=== PATIENT | female | born 1975 | race Caucasian/White ===

== ENCOUNTER 2020-04-19 07:57 | Outpatient (CLI) | payer BC, SELFPAY | END 2020-04-19 07:58 | disposition home or self-care (01) | LOC: ANHAUDIO 07:59 | PROVIDERS: PCP Family Medicine; Visit Provider Otolaryngology | DX: R42 Dizziness and giddiness (principal) | CPT/HCPCS: 92537; 92540; 92546; 92557; 92567 ==

== ENCOUNTER 2020-07-26 14:12 | Outpatient (CLI) | payer BC, SELFPAY ==
--- NOTE | ~2020-07-26 | MM_ITS ---
EXAMINATION: MM screening manny BI w leo HISTORY: Screening mammogram TECHNIQUE: Craniocaudal and mediolateral oblique 3-D tomosynthesis images were obtained and synthetic 2-D images were generated. CAD analysis was submitted and interpreted. COMPARISON: 05/19/2019, 05/17/2018, 05/14/2017 bilateral digital screening mammogram examinations BREAST PARENCHYMAL COMPOSITION: There are scattered areas of fibroglandular density. FINDINGS: Stable circumscribed approximately 5 mm opacity in the lower outer quadrant of the right br east at mid depth, most consistent with stable benign intramammary lymph node. There is no evidence o f suspicious mass, calcification, or architectural distortion to suggest malignancy in either breast. There has been no suspicious interval change. IMPRESSION: 1. No mammographic evidence of malignancy. 2. Recommend routine screening mammography in one year. BI-RADS Category 2: Benign finding(s). Reviewed, dictated and finalized at location A.
== END 2020-07-26 14:13 | disposition home or self-care (01) ==
LOC: ANHIMG 14:14
PROVIDERS: PCP Family Medicine; Visit Provider Obstetrics & Gynecology Gynecology
DX: Z12.31 Encounter for screening mammogram for malignant neoplasm of breast (principal)
CPT/HCPCS: 77063; 77067

== ENCOUNTER 2021-07-28 08:48 | Outpatient (CLI) | payer BC, SELFPAY ==
--- NOTE | ~2021-07-28 | MM_ITS ---
EXAMINATION: MM screening manny BI w leo HISTORY: Screening TECHNIQUE: Craniocaudal and mediolateral oblique 3-D tomosynthesis images were obtained and synthetic 2-D images were generated. CAD analysis was submitted and interpreted. COMPARISON: Comparison to multiple prior studies sequentially, with oldest reviewed study dated 01/21. BREAST PARENCHYMAL COMPOSITION: There are scattered areas of fibroglandular density. FINDINGS: There are punctate calcifications in the upper aspect of the left breast on MLO view, not v isualized on cc view. The right breast is stable without evidence for malignancy. IMPRESSION: 1. Subtle punctate calcifications upper aspect of the left breast on MLO view. 2. Magnification views are recommended. BI-RADS Category 0: Incomplete: Needs additional imaging evaluation. Reviewed, dictated and finalized at location A.
== END 2021-07-28 08:49 | disposition home or self-care (01) ==
LOC: ANHIMG 08:49
PROVIDERS: PCP Family Medicine; Visit Provider Obstetrics & Gynecology Gynecology
DX: Z12.31 Encounter for screening mammogram for malignant neoplasm of breast (principal); R92.8 Other abnormal and inconclusive findings on diagnostic imaging of breast
CPT/HCPCS: 77063; 77067

== ENCOUNTER 2021-08-05 13:45 | Outpatient (CLI) | payer BC, SELFPAY ==
--- NOTE | ~2021-08-05 | MM_ITS ---
EXAMINATION: MM diagnostic manny LT w leo HISTORY: Follow-up left breast calcifications TECHNIQUE: Additional 3-D tomosynthesis images of the left breast were performed and synthetic 2-D im ages were generated. CAD analysis was submitted and interpreted. COMPARISON: Comparison to multiple prior studies sequentially, with oldest reviewed study dated 03/23. BREAST PARENCHYMAL COMPOSITION: Breast composed of scattered areas of fibroglandular density FINDINGS: There are no suspicious calcifications identified with spot magnification or mediolateral v iews. The calcifications described on prior examination are possibly artifact. No discrete mass or ar chitectural distortion. IMPRESSION: 1. No mammographic evidence for malignancy in the left breast. 2. Routine yearly screening mammogram and regular clinical breast examination are recommended. BI-RADS Category 1: Negative Reviewed, dictated and finalized at location A. IMPRESSION: 1. No mammographic evidence for malignancy in the left breast. 2. Routine yearly screening mammogram and regular clinical breast examination a re recommended. BI-RADS Category 1: Negative
== END 2021-08-05 13:46 | disposition home or self-care (01) ==
LOC: ANHIMG 13:46
PROVIDERS: PCP Family Medicine; Visit Provider Obstetrics & Gynecology Gynecology
DX: R92.8 Other abnormal and inconclusive findings on diagnostic imaging of breast (principal)
CPT/HCPCS: 77061; 77065; G0279

== ENCOUNTER 2022-08-28 09:10 | Outpatient (CLI) | payer BC, SELFPAY ==
--- NOTE | ~2022-08-28 | MM_ITS ---
EXAMINATION: MM screening [facility] BI w leo HISTORY: Screening mammogram TECHNIQUE: Craniocaudal and mediolateral oblique 3-D tomosynthesis images were obtained and synthetic 2-D images were generated. CAD analysis was submitted and interpreted. COMPARISON: 08/05/2021, 07/28/2021, 07/26/2020 BREAST PARENCHYMAL COMPOSITION: There are scattered areas of fibroglandular density. FINDINGS: No suspicious mass, calcification, or architectural distortion are identified in either isra ast to suggest malignancy. There has been no suspicious interval change. IMPRESSION: 1. No mammographic evidence of malignancy. 2. Recommend routine screening mammography in one year. BI-RADS Category 1: Negative Reviewed, dictated and finalized at location A.
== END 2022-08-28 09:11 | disposition home or self-care (01) ==
LOC: ANHIMG 09:12
PROVIDERS: PCP Family Medicine; Visit Provider Obstetrics & Gynecology Gynecology
DX: Z12.31 Encounter for screening mammogram for malignant neoplasm of breast (principal)
CPT/HCPCS: 77063; 77067

== ENCOUNTER 2023-11-09 09:01 | Outpatient (CLI) | payer BC, SELFPAY ==
--- NOTE | ~2023-11-09 | MM_ITS ---
EXAMINATION: MM screening manny BI w leo HISTORY: Screening TECHNIQUE: Craniocaudal and mediolateral oblique 3-D tomosynthesis images were obtained and synthetic 2-D images were generated. CAD analysis was submitted and interpreted. COMPARISON: Comparison to multiple prior studies sequentially, with oldest reviewed study dated 05/17/2018. BREAST PARENCHYMAL COMPOSITION: Not dense: There are scattered areas of fibroglandular density. FINDINGS: There is no evidence of suspicious mass, calcification, or architectural distortion to sugg est malignancy in either breast. There has been no suspicious interval change. IMPRESSION: 1. No mammographic evidence of malignancy. 2. Recommend routine screening mammography in one year. BI-RADS Category 1: Negative Reviewed, dictated and finalized at location B.
== END 2023-11-09 09:02 | disposition home or self-care (01) ==
LOC: ANHIMG 09:02
PROVIDERS: PCP Family Medicine; Visit Provider Obstetrics & Gynecology Gynecology
DX: Z12.31 Encounter for screening mammogram for malignant neoplasm of breast (principal)
CPT/HCPCS: 77063; 77067

== ENCOUNTER 2024-01-11 03:05 | Day surgery (SDC) | payer BC, SELFPAY ==
[2023-12-17 11:58] VITALS: BMI 28.9
[2024-01-11 07:51] VITALS: BP 115/98; PULSE 77; RESP 18; TEMP 36.1; O2SAT 100
[2024-01-11] MEDS: LACTATED RINGERS 1,000 ML 150 ML IV CONT (08:02)
--- NOTE | 2024-01-11 08:06 | WPDANESEPPF ---
Anes - Initial Pre Proc Eval Procedure: Operation Date: 01/11/24 09:00 Proposed Procedures p Colonoscopy - Fred Lewis MD Date/Time: 01/11/24 08:06 Surgeon: Fred Lewis MD Pre Op Diagnosis: Fam. Hx. colon CA Patient Data Age: 48 Gender: F Height: 1.73 m Weight: 88 kg Last Vital Signs Temp 36.1 C L 01/11/24 07:51 Pulse 77 01/11/24 07:51 Resp 18 01/11/24 07:51 BP 115/98 H 01/11/24 07:51 Pulse Ox 100 01/11/24 07:51 O2 Del Method Room Air 01/11/24 07:51 Allergies Allergy/AdvReac Type Severity Reaction Status Date / Time No Known Allergies Allergy Mild Verified 01/11/24 07:44 Home Medications Medication Instructions Recorded Confirmed Type cetirizine 10 mg capsule (Zyrtec) 10 mg PO DAILY PRN allergies 03/06/23 12/17/23 History cholecalciferol (vitamin D3) 50 50 mcg PO DAILY 03/06/23 12/17/23 History mcg (2,000 unit) capsule etonogestrel 0.12 mg-ethinyl 1 vag ring vaginal ONCE 03/06/23 12/17/23 History estradiol 0.015 mg/24 hr vaginal ring (NuvaRing) levothyroxine 112 mcg capsule 112 mcg PO DAILY 03/06/23 12/17/23 History multivitamin 1 tablet PO DAILY 03/06/23 12/17/23 History omega 3-uiq-leb-fish oil 60 mg-90 1 cap PO DAILY 03/06/23 12/17/23 History mg-500 mg capsule (Fish Oil) vitamins A,C,G-cquu-wwejlk 2,148 2 tablet PO BID 03/06/23 12/17/23 History mcg-113 mg-45 mg-17.4 mg tablet (PreserVision AREDS) losartan 50 mg tablet 50 mg PO DAILY #90 tabs 08/28/23 12/17/23 Rx Patient hx anesthesia problems: post op nausea/vomiting Family hx anesthesia problems: none Results Review: All pre-operative results and documents have been reviewed as part of the pre-operative evaluation. [facility] Past Medical History Medical History Benign essential HTN Gerald's thyroiditis Sensitive skin Family History Family History Father Colon cancer Mother Hypertension Social History Social History Social History: Smoking status: Never smoker Second hand tobacco smoke exposure: No Alcohol intake: current Drinks per week: 1 Alcohol use details: Occasionally Substance use: never Substance use type: does not use Do You Feel Safe in your Home?: Yes Lack of Transportation: No Lack of Food: Never True Current Housing: I Have Housing Concerned About Future Housing: No Difficulty Paying Gas/Electric Bills: No Difficulty Paying for Meds: No Currently Unemployed: No Education: Master's Degree or Higher Difficulty w/ Childcare or Family Care: No Living arrangements: with family Occupation/Education: occupation Additional occupation/education comments: 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 Gender identity (if verbalized by the patient): Female Sexual Orientation (if Verbalized by the Patient): Straight or Heterosexual Spiritual care concerns: No Anes - Eval Final PreProcedure Day of Procedure 01/11/24 08:06 Patient weight: overweight Heart: regular rate and rhythm Lungs: clear to auscultation Airway: Mallampati scale class II Neurological: alert and oriented Last oral intake: >/= 8 hours ASA classification: II Emergent: no Anesthetic plan: proceed Anesthesia type and monitoring: general GIVS and standard monitoring Results Review: All pre-operative results and documents have been reviewed as part of the pre-operative evaluation. Informed Consent: The patient's anesthetic plan and its attendant risks and benefits were discussed with the patient/family/POA. Questions were solicited and answers provided to the satisfaction of the patient/family/POA.
[2024-01-11 08:09] LABS: BEDSIDEPREGUCG Negative (Negative)
--- NOTE | 2024-01-11 08:23 | PM.HPGS ---
History of Present Illness History of Present Illness Consent: Risks, benefits, and alternatives have been discussed and questions answered. Patient agrees to proceed with procedure. Chief complaint: Fam. Hx. colon CA Narrative: Aracelis Villanueva is a 48 year old female here for colonoscopy, last one 5 years ago, father had colon cancer at early 50 Review of Systems Review of Systems: All systems reviewed & are unremarkable except as noted in HPI and below PMFSH Past Medical History Medical History Benign essential HTN Gerald's thyroiditis Sensitive skin Family History Family History Father Colon cancer Mother Hypertension Social History Social History Social History: Smoking status: Never smoker Second hand tobacco smoke exposure: No Alcohol intake: current Drinks per week: 1 Alcohol use details: Occasionally Substance use: never Substance use type: does not use Do You Feel Safe in your Home?: Yes Lack of Transportation: No Lack of Food: Never True Current Housing: I Have Housing Concerned About Future Housing: No Difficulty Paying Gas/Electric Bills: No Difficulty Paying for Meds: No Currently Unemployed: No Education: Master's Degree or Higher Difficulty w/ Childcare or Family Care: No Living arrangements: with family Occupation/Education: occupation Additional occupation/education comments: 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 Gender identity (if verbalized by the patient): Female Sexual Orientation (if Verbalized by the Patient): Straight or Heterosexual Spiritual care concerns: No Meds Home Medications and Allergies Home Medications Medication Instructions Recorded Confirmed Type cetirizine 10 mg capsule (Zyrtec) 10 mg PO DAILY PRN allergies 03/06/23 12/17/23 History cholecalciferol (vitamin D3) 50 50 mcg PO DAILY 03/06/23 12/17/23 History mcg (2,000 unit) capsule etonogestrel 0.12 mg-ethinyl 1 vag ring vaginal ONCE 03/06/23 12/17/23 History estradiol 0.015 mg/24 hr vaginal ring (NuvaRing) levothyroxine 112 mcg capsule 112 mcg PO DAILY 03/06/23 12/17/23 History multivitamin 1 tablet PO DAILY 03/06/23 12/17/23 History omega 0-xnj-gqv-fish oil 60 mg-90 1 cap PO DAILY 03/06/23 12/17/23 History mg-500 mg capsule (Fish Oil) vitamins A,C,M-diyo-nqzevd 2,148 2 tablet PO BID 03/06/23 12/17/23 History mcg-113 mg-45 mg-17.4 mg tablet (PreserVision AREDS) losartan 50 mg tablet 50 mg PO DAILY #90 tabs 08/28/23 12/17/23 Rx Allergies Allergy/AdvReac Type Severity Reaction Status Date / Time No Known Allergies Allergy Mild Verified 01/11/24 07:44 Vital Signs Vital Signs - 24 hr 01/11/24 07:51 Temperature 97 F L Pulse Rate 77 Respiratory Rate 18 Blood Pressure 115/98 H Pulse Oximetry 100 Oxygen Delivery Room Air Exam Const: General: comfortable and no acute distress HENMT: Face/Nose/Sinus: Normal nares present Eyes: General: appearance normal, both eyes and all related structures Neck: Neck: no JVD Resp: Auscultation: clear to auscultation bilaterally Cardio: Rate: regular rate Rhythm: regular rhythm GI: Inspection: non-distended GI Palp: Yes Soft to palpation Skin: General skin exam: normal color Neuro: General: gait normal Speech: normal speech Extrem: General: normal to inspection Psych: Mental Status: mental status grossly normal Assessment and Plan Assessment and plan (1) FHx: colon cancer: Code(s): Z80.0 - Family history of malignant neoplasm of digestive organs Status: Acute Assessment and Plan: colonoscopy
[2024-01-11 08:36] VITALS: BP 115/72; PULSE 78; RESP 19; O2SAT 100
[2024-01-11 08:46] VITALS: BP 112/72; PULSE 68; RESP 21; O2SAT 100
[2024-01-11 08:56] VITALS: BP 130/85; PULSE 66; RESP 18; O2SAT 100
== END 2024-01-11 09:02 | disposition home or self-care (01) ==
PROVIDERS: Anesthesiology; PCP Family Medicine; Visit Provider Internal Medicine Gastroenterology
PROC: 0DJD8ZZ Inspection of Lower Intestinal Tract, Via Natural or Artificial Opening Endoscopic (ICD-10-PCS; CPT 45378; principal; 2024-01-11 09:00)
DX: Z12.11 Encounter for screening for malignant neoplasm of colon (principal); Z80.0 Family history of malignant neoplasm of digestive organs; K57.30 Diverticulosis of large intestine without perforation or abscess without bleeding; K64.8 Other hemorrhoids; I10 Essential (primary) hypertension; E06.3 Autoimmune thyroiditis
CPT/HCPCS: 45378; J2704; J7120

== ENCOUNTER 2024-12-04 08:22 | Outpatient (CLI) | payer BC, SELFPAY ==
--- NOTE | ~2024-12-04 | MM_ITS ---
EXAMINATION: MM screening manny BI w leo HISTORY: Screening TECHNIQUE: Craniocaudal and mediolateral oblique 3-D tomosynthesis images were obtained and synthetic 2-D images were generated. CAD analysis was submitted and interpreted. COMPARISON: Comparison to multiple prior studies sequentially, with oldest reviewed study dated 05/19. BREAST PARENCHYMAL COMPOSITION: Not dense: There are scattered areas of fibroglandular density. FINDINGS: Stable benign low-density mass upper outer quadrant of the right breast. There is no eviden ce of suspicious mass, calcification, or architectural distortion to suggest malignancy in either isra ast. There has been no suspicious interval change. IMPRESSION: 1. No mammographic evidence of malignancy. 2. Recommend routine screening mammography in one year. BI-RADS Category 2: Benign finding(s). Reviewed, dictated and finalized at location A.
--- OUTSIDE RECORDS SUMMARY | 2024-12-04 08:29 | XMS_ITS | Encounter Summary ---
Author Organization [facility] Address [address] [place] [address] Care Team Providers Care Supervisor Feed Mill Name Role Phone Zhou Gaxiola DO Primary Care Provider [phone] Yuliya Blanca MD Primary Care Provider [phone] Forrest Willett MD Primary Care Provider [phone] Reason for Visit * Reason Onset Date Comments MEDICATION REFILL 06/17/2018 Encounter Details Date Type Department Care Team (Late Contact Info) Description 06/17/2018 Refill [facility] [address] [place] [address] Jonny Tucker MD [address] [place] [phone] MEDICATION REFILL Social History Tobacco Use Types Packs/Day Years Used Date Smoking Tobacco: Never Smokeless Tobacco: Never Alcohol Use Standard Drinks/Week Comments Yes 0 (1 standard drink = 0.6 oz pur e alcohol) Comments Unknown Sex and Gender Information Value Date Recorded Sex Assigned at Not on file Legal Sex Female 6:34 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 Gender Identity Not on file Sexual Orientation Not on file documented as of this encounter Plan of Treatment Upcoming Encounters Date Type Department Care Team (Late Contact Info) Description 02/24/2025 9:00 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 Office Visit [facility] [address] [place] [phone] Liliam Gaffney MD [address] [address] documented as of this encounter Visit Diagnoses Diagnosis 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 [place] [phone] PCP - General 09/02/18 01/24/23 Forrest Willett MD [address] [place] [address] PCP - General Family Medicine 01/25/23 documented as of this encounter
--- OUTSIDE RECORDS SUMMARY | 2024-12-04 08:29 | XMS_ITS | Clinical Summary ---
Author Organization [facility] Address [address] [place] [address] Phone Care Team Providers Care Chemical Analyst Name Role Phone Unavailable Primary Care Provider Unavailabl e Encounters Date Type Department Care Team Description 11/05/2024 External Device Data [facility] ABSTRACTION Provider, Abstract 11/04/2024 External Device Data [facility] ABSTRACTION Provider, Abstract 10/07/2024 External Device Data [facility] ABSTRACTION Provider, Abstract 09/11/2024 External Device Data [facility] ABSTRACTION Provider, Abstract 09/09/2024 External Device Data [facility] ABSTRACTION Provider, Abstract from Last 3 Months Social History Tobacco Use Types Packs/Day Years Used Date Smoking Tobacco: Never Assessed Comments Unknown Sex and Gender Information Value Date Recorded Sex Assigned at Not on file 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 Gender Identity Not on file Sexual Orientation Not on file Plan of Treatment Health Maintenance Due Date Last Done Comments HEPATITIS B VACCINES (1 of 3 - 19+ 3-dose series) 01/21 HPV/Cotest (21-29) 02/05/1997 HPV/Cotest (30-65) 02/05/2006 BREAST CANCER SCREENING 2016 CERVICAL CANCER SCREENING 04/03/2020 PAP SMEAR 04/03/2020 04/03/2017 COLORECTAL SCREENING 02/05/2021 Colorectal Cancer Screening 02/05/2021 FIT-DNA Q 3 years 02/05/2021 FIT/FOBT Q 1 year 02/05/2021 Flex Sig/CT Colonography Q 5 years 02/05/2021 INFLUENZA VACCINE (#1) 2024 DTAP/TDAP/TD VACCINES (2 - Td or Tdap) 01/13/2030 Insurance [facility] BLUE ACCESS CHOICE
--- OUTSIDE RECORDS SUMMARY | 2024-12-04 08:29 | XMS_ITS | Clinical Summary ---
Author Organization [facility] Address [address] [place] [id number] Care Team Providers Care Emotional Disabilities Teacher Name Role Phone Unavailable Primary Care Provider Unavailabl e Social History Tobacco Use Types Packs/Day Years Used Date Smoking Tobacco: Never Assessed Comments Unknown Sex and Gender Information Value Date Recorded Sex Assigned at Not on file Legal Sex Female 7:06 PM CDT Gender Identity Not on file Sexual Orientation Not on file Plan of Treatment Health Maintenance Due Date Last Done Comments Cervical Cancer Screening Pa p Smear (Age 30 to 64) Every 3 Years 1976 Colorectal Cancer Screening Colonoscopy (10 Years) 1976 Annual Physical 02/05/1979 Hepatitis C 02/05/1994 DTaP, Tdap and Td Vaccines ( 1 - Tdap) 02/05/1995 Hepatitis B Vaccines (1 of 3 - 19+ 3-dose series) 02/05/1995 Cervical Cancer Screening Pa p with HPV Testing (Age 30 to 64) Every 5 Years 02/05/2006 Cervical Cancer Screening with HPV 02/05/2006 Mammogram Screening 2016 COVID-19 Vaccine (2023-2 5 season) 2023 Meningococcal B Vaccine Aged Out No l onger eligible based on patient's age to complete this topic Meningococcal Vaccine Aged Out No kiesha arturo eligible based on patient's age to complete this topic Pneumococcal Vaccine: Pediat rics (0 to 5 Years) and At-Risk Patients (6 to 49 Years) Aged Out No longer eligible b ased on patient's age to complete this topic RSV Immunizations Under 20 Months Aged Out No longer eligible based on patient's age to complete this topic
--- OUTSIDE RECORDS SUMMARY | 2024-12-04 08:29 | XMS_ITS | Clinical Summary ---
Author Organization [facility] Address [address] [place] [address] Care Team Providers Care Ship Purser Name Role Phone Forrest Willett MD Primary Care Provider [phone] [facility],non-owned Affiliates and Associated Physician Practices is amultiple site organization consisting of ambulatory clinics and hospital sitesin [place], [place], [place] and [place]. This disclosure is being madepursuant to the Care Everywhere program and may not contain all information available regarding this patient. Last updated 18.[facility] Allergies No known active allergies Medications * Be aware that medications may not be up to date on this document. Alwaysverify current medications with the patient. NUVARING 0.12-0.015 MG/24HR vaginal ring 8 Active Cholecalciferol (HM VITAMIN D3) 100 MCG (4000 UT) Take 1 capsule by mouth once daily Active Multiple Vitamins-Minera ls (SYSTANE ICAPS AREDS2) CAPS Take 2 capsules by mouth once daily Active losartan (COZAAR) 50 MG tablet Take 1 (one) tablet by mouth once daily 1 Active [place]-3 Fatty Acids (FISH OIL PO) Active Multiple Vitamins-Minera ls (PRESERVISION/L UTEIN PO) Active hydrocortisone (Hytone) 2.5 % ointment 3 Active Synthroid 112 MCG tablet Take 1 (one) tablet by mouth daily before breakfast TAKE 1 TABLET DAILY BEFORE BREAKFAST EXCEPT Sunday and SUNDAY TAKE 2 TABLETS, 9 tabs per week, (UNDERACTIVETH YROID) 116 tablet 3 4 Active Active Problems Problem Noted Date Diagnosed Date Gerald's thyroiditis 03/27/2018 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 Chronic lymphocytic thyroiditis 08/28/2017 Goiter 08/28/2017 Hypothyroidism 10/10/2011 Immunizations Immunization Administration Dates Next Due Covid Moderna primary monovalent 12+ yr 0.5mL ,05/20/2020 INFLUENZA VACCINE 01/21/2018 TDAP (7yrs+) 01/14/2020 Family History Medical History Relation Name Comments Cancer - Colon Father Cancer - Other Father High Cholesterol Mother Hypertension Mother Thyroid Disease Mother hypothyroidi sm Relation Name Status Comments Father Mother Social History Tobacco Use Types Packs/Day Years Used Date Smoking Tobacco: Never Smokeless Tobacco: Never Tobacco Cessation:Counseling Given: Not Answered Alcohol Use Standard Drinks/Week Comments Yes 0 (1 standard drink = 0.6 oz pur e alcohol) Comments No Sex and Gender Information Value Date Recorded Sex Assigned at Not on file Legal Sex Female 6:34 AM MEDICAL SPECIALIST Gender Identity Not on file Sexual Orientation Not on file Last Filed Vital Signs Vital Sign Reading Time Taken Comments Blood Pressure 125/86 02/07/2024 9:34 AM CDT Pulse 72 02/07/2024 9:34 AM CDT Temperature 36.9 C (98.5 F) 02/07/2024 9:34 AM CDT Respiratory Rate 18 01/25/2023 9:38 AM CDT Oxygen Saturation 98% 02/07/2024 9:34 AM CDT Inhaled Oxygen Concentration - - Weight 92.1 kg (203 lb) 02/07/2024 9:34 AM CDT Height 172.7 cm (5' 8) 02/07/2024 9:34 AM CDT Body Mass Index 30.87 02/07/2024 9:34 AM CDT Plan of Treatment Upcoming Encounters Date Type Department Care Team (Late st Contact Info) Description 02/24/2025 9:00 AM MEDICAL SPECIALIST Office Visit [facility] - Endocrinology [address] [place] [address], [place] [phone] Liliam Gaffney MD [address] [place] [address] [place] [phone] Health Maintenance Due Date Last Done Comments COLOGUARD (AGES 45-75) - COL ON CA SCREENING 1976 COLON MONITORING 1976 COLONOSCOPY - COLON CA SCREENING 1976 CT COLONOGRAPHY - COLON CA SCREENING 1976 Colorectal Cancer Screening 1976 FIT - COLON CA SCREENING 1976 FLEX SIG - COLON CA SCREENING 1976 LIPID TESTING 1976 MAMMOGRAM 1976 HIV SCREENING 02/05/1991 HEPATITIS C SCREENING 02/01/1994 HEPATITIS B VACCINE (1 of 3 - 19+ 3-dose series) 02/05/1995 PAP SMEAR 02/05/1997 COVID-19 VACCINE (2023-2 5 season) 2023 06/22/2020, 05/20/2020 SCREENING FOR DIABETES 02/07/2024 06/18/2013 DEPRESSION SCREENING 04/23/2024 INFLUENZA VACCINE (#1) 2024 01/21/2018 ZOSTER VACCINE (1 of 2) 02/05/2026 DTAP/TDAP/TD VACCINES (2 - T d or Tdap) 01/13/2030 01/14/2020 HIB VACCINE Aged Out No longer eligi ble based on patient's age to complete this topic HPV VACCINE Aged Out No longer eligi ble based on patient's age to complete this topic MENINGOCOCCAL (Group B) VACCINE SHARED DECISION-MAKING Aged Out No longer eligible based on patient's age to complete this topic MENINGOCOCCAL GROUPS A/C/Y/W VACCINE Aged Out No longer eligible b ased on patient's age to complete this topic PNEUMOCOCCAL VACCINE Aged Out No long er eligible based on patient's age to complete this topic Procedures Procedure Name Priority Date/Time Associated Diagnosis Comments BASIC METABOLIC PANEL (CALCIUM TOTAL) Routine 06/18/2013 9:28 AM MEDICAL SPECIALIST from Last 3 Months or Most Recently Relevant to Health Maintenance Results * BASIC METABOLIC PANEL (CALCIUM TOTAL) (06/18/2013 9:28 AM MEDICAL SPECIALIST) Glucose 79 65 - 99 mg/dL [facility] ([facility]) BUN 15 6 - 20 mg/dL [facility] ([facility]) Creatinine 0.83 0.57 - 1.00 mg/dL [facility] ([facility]) eGFR non- 90 >59 mL/min/1.7 3 [facility] eGFR 104 >59 mL/min/1.7 3 [facility] BUN/Creatinine Ratio 18 8 - 20 [facility] Sodium 140 134 - 144 mmol/L [facility] Potassium 4.6 3.5 - 5.2 mmol/L [facility] Chloride 105 97 - 108 mmol/L [facility] CO2 22 19 - 28 mmol/L [facility] Calcium 8.9 8.7 - 10.2 mg/dL [facility] Blood specimen (specimen) 06/18/2013 9:28 AM MEDICAL SPECIALIST 06/18/2013 2:08 PM MEDICAL SPECIALIST Narrative [facility] ([facility]) - 06/19/2013 9:25 AM MEDICAL SPECIALIST Performed at: 01 - [facility] [address] [place], [place] [id number] Civil Defense Director: Charlie Vasquez MD, Phone: [phone] Jonny Tucker MD LAB - CHEMISTRY ORDERABLES Final Result [facility] ([facility]) [address] [place] [id number] from Last 3 Months or Most Recently Relevant to Health Maintenance Insurance [employer] Care Teams Ship Purser Relationship Specialty Start Date End Date Forrest Willett MD [address] [place] [address] PCP - General Family Medicine 01/25/23
== END 2024-12-04 08:23 | disposition home or self-care (01) ==
LOC: ANHIMG 08:24
PROVIDERS: PCP Family Medicine; Visit Provider Obstetrics & Gynecology Gynecology
DX: Z12.31 Encounter for screening mammogram for malignant neoplasm of breast (principal)
CPT/HCPCS: 77063; 77067